=== PATIENT | male | born 1955 | race Caucasian/White ===

== ENCOUNTER 2023-04-18 12:22 | Outpatient (CLI) | payer MEDICARE, MEDICAID, SELFPAY ==
--- NOTE | 2023-04-18 12:30 | CRLHL7_ITS ---
For Patients: As a result of the Century Cures Act, medical imaging exams and procedure reports are released immediately into your electronic medical record. You may view this report before your referring provider. If you have questions, please contact your health care provider. INDICATION: Lung carcinoma. Pain. TECHNIQUE: Left shoulder 3 view. IMPRESSION: Focal area of somewhat linear intra cortical lucency along the lateral cortex of the humerus. This is identified on series 1. Surgical clips are noted at the level of the proximal humerus in the left axilla. Arthrosis and spurring of the AC joint. No additional aggressive lytic or sclerotic bone lesion. Suggest radionuclide bone scan for characterization of the left humerus. Dictated by Chance Easley MD @ 04/19/2023 10:23:31 AM (Electronically Signed)
== END 2023-04-18 12:23 | disposition home or self-care (01) ==
PROVIDERS: Visit Provider Radiology Radiation Oncology
DX: C34.80 Malignant neoplasm of overlapping sites of unspecified bronchus and lung (principal); M19.012 Primary osteoarthritis, left shoulder; C79.51 Secondary malignant neoplasm of bone
CPT/HCPCS: 73030

== ENCOUNTER 2023-04-24 08:56 | Outpatient (CLI) | payer MEDICARE, MEDICAID, SELFPAY ==
--- NOTE | 2023-04-24 09:00 | CRLHL7_ITS ---
For Patients: As a result of the Century Cures Act, medical imaging exams and procedure reports are released immediately into your electronic medical record. You may view this report before your referring provider. If you have questions, please contact your health care provider. NM whole-body bone Scan: Technique: Nuclear medicine whole-body bone scan per protocol after the intravenous administration of 25.9 millicuries technetium 99 M MDP. In addition to anterior and posterior whole body images, lateral views of the chest were obtained. Clinical information: Lung cancer Comparison: CT chest March 20, 2023 Findings: Focal uptake within the right 11th posterolateral rib corresponds to a fracture on recent CT. There is abnormal focal uptake within the left proximal humerus. Additionally there is increased uptake with central photopenia within the left acetabulum. Degenerative-type activity is present within bilateral acromioclavicular joints, thoracic spine, knees and feet. There is normal renal and urinary bladder activity. There is no abnormal soft tissue uptake. Impression: Abnormal focal uptake within the left proximal humerus and at the left acetabulum may be seen with osseous metastatic disease. Recommend FDG PET-CT to adequately characterize/most accurately stage. Dictated by Nasim Meade MD @ 04/24/2023 6:50:02 PM (Electronically Signed)
== END 2023-04-24 08:57 | disposition home or self-care (01) ==
LOC: NM 09:00
PROVIDERS: Visit Provider Radiology Radiation Oncology
DX: C34.80 Malignant neoplasm of overlapping sites of unspecified bronchus and lung (principal); C79.51 Secondary malignant neoplasm of bone
CPT/HCPCS: 78306; A9503

== ENCOUNTER 2023-05-14 10:14 | Emergency (ER) | payer MEDICARE, MEDICAID, SELFPAY ==
[2023-05-14] VITALS (7 sets, daily range): BP systolic 116–133; BP diastolic 81–101; PULSE 99–111; RESP 20; TEMP 36.9; O2SAT 88–93; BMI 30.2
[2023-05-14 11:24] LABS: PCR FLU A Negative PCR FLU A (Negative); PCR FLU B Negative PCR FLU B (Negative); PCR RSV Negative PCR RSV (Negative); SARS PCR* Negative SARS-CoV-2 (Negative)
--- NOTE | 2023-05-14 11:36 | CRLHL7_ITS ---
For Patients: As a result of the Century Cures Act, medical imaging exams and procedure reports are released immediately into your electronic medical record. You may view this report before your referring provider. If you have questions, please contact your health care provider. Indication: Shortness of breath, left-sided rib pain Technique: Volumetric multidetector CT images of the chest were obtained after the administration of IV contrast. 95 cc Isovue 370 low osmolar intravenous contrast Comparison: None available. Findings: The thoracic inlet and thyroid gland are unremarkable. The thoracic aorta is nonaneurysmal. There is no central filling defect to suggest pulmonary embolism. There are enlarged mediastinal and hilar lymph nodes. There is marked thickening of the proximal right lower lobe, middle lobe and upper lobe bronchi with questionable encasement of right hilar vascular structures. Additional moderate thickening of the left lower lobe and inferior left upper lobe bronchi are appreciated with complete mucoid impaction of inferior left upper lobe seen on series 4, image 13. There are diffusely increased interstitial markings with right apical linear parenchymal scar and volume loss. There is no dense consolidation, effusion or pneumothorax. No evidence of displaced rib injury. There are questionable surgical clips seen along the posterior left chest wall superficial to the subscapularis muscle. The partially visualized upper abdominal viscera are within normal limits. The thoracic vertebral body heights are grossly maintained with moderate to severe degenerative disc disease. Impression: No evidence of pulmonary embolus. Marked thickening of the right greater than left hilar bronchi with mucoid impaction of inferior left upper lobe bronchi and questionable right hilar bronchovascular encasement with reactive mediastinal and hilar lymph nodes. Overall, findings could represent severe bronchitis changes; however, an underlying bronchogenic neoplasm is not entirely excluded. Consider further evaluation with bronchoscopy. Otherwise, minimal basilar atelectasis and parenchymal scar. Questionable surgical clips along the posterior left chest wall just superficial to the subscapularis muscle. Correlate with surgical history. Otherwise, no evidence of displaced rib injury. Please note that all CT scans at this facility use dose modulation, iterative reconstruction, and/or weight-based dosing when appropriate to reduce radiation dose to as low as reasonably achievable. Dictated by Yraon Wolff MD @ 05/14/2023 1:29:40 PM (Electronically Signed)
[2023-05-14] MEDS: HYDROmorphone 0.5 mg/0.5 ml inj 1 MG IVP (11:59)
[2023-05-14] MEDS: 0.9 % SODIUM CHLORIDE 1000 ml 1,000 ML IV (12:00)
[2023-05-14 12:12] LABS: Basophils Absolute Auto 0.02 K/uL (0.00-0.30); Basophils Percent Auto 0.2 % (0.0-3.0); Eosinophils Absolute Auto 0.04 K/uL (0.00-0.50); Eosinophils Percent Auto 0.4 % (0.0-7.0); Hematocrit 37.6 % (37.0-53.0); Hemoglobin* 12.4 gm/dL (13.5-17.5); Immature Granulocytes Abs Auto 0.04 K/uL (0.00-0.30); Immature Granulocytes Pct Auto 0.4 %; Lymphocytes Percent Auto 4.7 % (20-44); Mean Corpuscular HGB Conc 33 gm/dL (32-36); Mean Corpuscular Hemoglobin 30 pg (26-34); Mean Corpuscular Volume 90 fL (80-100); Monocytes Percent Auto 5.2 % (0.0-11.0); Neutrophils Percent Auto 89.1 % (42.0-72.0); Platelet Count* 259 K/uL (140-440)
[2023-05-14 12:15] LABS: Slide Review Reflex No
[2023-05-14 12:17] LABS: Chloride* 98 mmol/L (96-114); Sodium* 133 mmol/L (135-149)
[2023-05-14 12:18] LABS: Potassium* 3.8 mmol/L (3.6-5.1)
[2023-05-14 12:20] LABS: Creatinine* 0.6 mg/dL (0.5-1.5); Est. Creatinine Clearance* 67.94; Estimated Glomerular Filt Rate 106 ml/min
[2023-05-14 12:21] LABS: Anion Gap 8 mEq/L (7-15); Blood Urea Nitrogen* 10 mg/dL (7-30); Calcium* 9.5 mg/dL (8.4-10.6); Carbon Dioxide* 27 mmol/L (20-32); Glucose* 102 mg/dL (60-115)
[2023-05-14 12:34] LABS: Troponin I* < 0.01 ng/mL (0.01-0.04)
--- NOTE | 2023-05-14 13:53 | ED_ITS ---
HPI - General Adult General Date Seen: 05/14/23 Chief complaint: Shortness of Breath/Dyspnea Stated complaint: L arm/shoulder pain, short of breath Time Seen by Provider: 05/14/23 11:18 Source: patient and family Mode of arrival: ambulatory Limitations: no limitations History of Present Illness HPI narrative: Patient is a 67-year-old gentleman who has known metastatic lung cancer, to his left shoulder and left hip. He also is being treated for the cancer, has undergone chemotherapy a week ago. For this he also has gone radiation therapy to his left shoulder and left hip. He has had increasing over the past 3-4 days of left-sided pain in his ribs. Whenever he takes a breath in her twists or turns he notices the pain, he has no pain at rest without doing these things, he gets relief by putting pressure over this area he has not noted any rashes associated with this. He describes no fevers or chills, coughing, nausea vomiting or other issues. He has been able to deal pretty well with the chemotherapy so far is hopeful that this will actually buy him some time and possibly a cure. He is here today with his sister and his son. He gets his treatment down at [address], and also with oncology at [facility]. He has also had some hemoptysis which she says is not uncommon for him. He had this initially for diagnosis, now it is a little bit more blood-tinged No history DVTs, he has had no leg pain at all, swelling. He is taking his pain medications as directed with 10 mg of long-acting OxyContin along with interspersed Percocet for the discomfort Treatments prior to arrival: none Related Data Home Medications Medication Instructions Recorded Confirmed albuterol sulfate 90 mcg/actuation 2 puff inhalation 01/08/23 01/08/23 aerosol inhaler amlodipine 10 mg tablet 10 mg PO DAILY 01/08/23 05/14/23 atorvastatin 40 mg tablet 40 mg PO DAILY 01/08/23 05/14/23 hydrochlorothiazide 25 mg tablet 25 mg PO DAILY 01/08/23 05/14/23 losartan 50 mg tablet 50 mg PO DAILY 01/08/23 05/14/23 potassium chloride 20 mEq 20 meq PO DAILY 01/08/23 05/14/23 tablet,extended release(part/cryst) (Klor-Con M) amoxicillin 500 mg capsule 1,000 mg PO BID 05/14/23 05/14/23 ondansetron HCl 4 mg tablet 4 mg PO TID-QID PRN 05/14/23 05/14/23 oxycodone 10 mg tablet,extended mg PO 05/14/23 release,12 hr oxycodone 5 mg tablet 5 mg PO Q4-6H PRN 05/14/23 05/14/23 Previous Rx's Medication Instructions Recorded benzonatate 100 mg capsule 100 mg PO BID PRN cough #10 caps 01/08/23 amoxicillin 875 mg-potassium 1 tab PO BID #20 tabs 05/14/23 clavulanate 125 mg tablet oxycodone 20 mg tablet,crush 20 mg PO BID #14 tabs 05/14/23 resistant,extended release 12 hr (OxyContin) Allergies Allergy/AdvReac Type Severity Reaction Status Date / Time No Known Drug Allergies Allergy Verified 05/14/23 10:31 Review of Systems Status of ROS: Reports: 10 or more systems reviewed and unremarkable except as noted in History and below Exam Narrative: Exam Narrative: Patient is seen in room 6 he is in no apparent distress, but he is holding his left side, whenever he breathes or talks with me. He is vital signs are stable. Pupils are equal round reactive to light there is no scleral icterus redness TMs are normal, his chest has some occasional wheezes in his lungs bilaterally. But not so bad no crackles are noted he has no rash to suspect zoster. Heart sounds no clicks murmurs or gallops his abdomen is soft there is no guarding, his legs show no with edema swelling any moves them normally. Const: Vital Signs, click to edit/add: Vital Signs - 24 hr 05/14/23 10:35 05/14/23 12:19 05/14/23 12:21 Temperature 98.5 F Pulse Rate 99 109 H Pulse Rate [Pulse Oximeter] 111 H Respiratory Rate 20 Blood Pressure 118/101 H Blood Pressure [Ri ght Upper Arm] 116/81 Pulse Oximetry 93 91 91 Oxygen Delivery Me thod Room Air 05/14/23 12:22 05/14/23 13:02 05/14/23 13:15 Temperature Pulse Rate 106 H 107 H 103 H Pulse Rate [Pulse Oximeter] Respiratory Rate Blood Pressure Blood Pressure [Ri ght Upper Arm] Pulse Oximetry 88 91 92 Oxygen Delivery Ak thod Documenting provider has reviewed patient's vital signs: yes Course Course ED Course: I discussed with him the results of the CT scan, showing mucus and plugging of his bronchi, we will switch him to a mop augment him, have him stop the amoxicillin which she was taking for dental issues. And have him also double up on his OxyContin, and I have given him a new prescription for 14 tablets of the 20 mg he will follow-up with primary care or oncology for further prescription. No evidence of pulmonary embolus was given, we will give him a copy of all his lab test. Vital Signs Vital signs: Initial Vital Signs Temperature 98.5 F 05/14/23 10:35 Temperature Source Temporal Artery Scan 05/14/23 10:35 Pulse Rate 111 H 05/14/23 10:35 Pulse Rhythm Regular 05/14/23 10:35 Pulse Strength 3+ Normal 05/14/23 10:35 Respiratory Rate 20 05/14/23 10:35 Blood Pressure 116/81 05/14/23 10:35 Blood Pressure Mean 92 05/14/23 10:35 Blood Pressure Position Sitting 05/14/23 10:35 Pulse Oximetry 93 05/14/23 10:35 Oxygen Delivery Method Room Air 05/14/23 10:35 Vital Signs Temperature 98.5 F 05/14/23 10:35 Pulse Rate 111 H 05/14/23 10:35 Respiratory Rate 20 05/14/23 10:35 Blood Pressure 116/81 05/14/23 10:35 Pulse Oximetry 93 05/14/23 10:35 Oxygen Delivery Method Room Air 05/14/23 10:35 Temperature 98.5 F 05/14/23 10:35 Pulse Rate 103 H 05/14/23 13:15 Respiratory Rate 20 05/14/23 10:35 Blood Pressure 118/101 H 05/14/23 12:21 Pulse Oximetry 92 05/14/23 13:15 Oxygen Delivery Method Room Air 05/14/23 10:35 Medications Administered Medications: Discontinued Medications Generic Name Dose Route Start Last Admin Trade Name Freq PRN Reason Stop Dose Admin Hydromorphone HCl 1 mg 05/14/23 11:35 05/14/23 11:59 Hydromorphone 0.5 Mg/0.5 Ml Inj IVP 05/14/23 11:36 1 mg ONCE ONE Administration Sodium Chloride 1,000 mls @ 1,000 mls/hr 05/14/23 11:45 05/14/23 12:00 0.9 % Sodium Chloride 1000 Ml IV 05/14/23 12:44 1,000 mls/hr .Q1H LALO Administration Medical Decision Making MDM Narrative Medical decision making narrative: During the evaluation of this patient I considered multiple differential diagnosis is. The life-threatening differential diagnosis include coronary disease/MD, pulmonary embolism, pneumothorax, pneumonia, and aortic dissection. Other differential diagnosis included but were not limited to pericarditis, myocarditis, chest wall pain, GERD, esophageal rupture, rib fracture contusion, pleurisy, as well as other etiologies. Medical Records Medical records reviewed: Yes I reviewed the patient's medical records Lab Data Lab results reviewed: Yes I reviewed the patient's lab results Labs: Lab Results 05/14/23 05/14/23 Range/Units 11:55 Unknown WBC 10.10 (4.50-11.00) K/uL RBC 4.20 L (4.30-5.90) m/uL Hgb 12.4 L (13.5-17.5) gm/dL Hct 37.6 (37.0-53.0) % MCV 90 (80-100) fL MCH 30 (26-34) pg MCHC 33 (32-36) gm/dL RDW Coeff of Lex[place] 14.0 (11.5-15.5) % Plt Count 259 (140-440) K/uL Neut % (Auto) 89.1 H (42.0-72.0) % Lymph % (Auto) 4.7 L (20-44) % [place] % (Auto) 5.2 (0.0-11.0) % Eos % (Auto) 0.4 (0.0-7.0) % Baso % (Auto) 0.2 (0.0-3.0) % Neut # (Auto) 9.00 H (1.7-7.0) K/uL Lymph # (Auto) 0.50 L (0.90-2.90) K/uL [place] # (Auto) 0.50 (0.00-0.90) K/UL Eos # (Auto) 0.04 (0.00-0.50) K/uL Baso # (Auto) 0.02 (0.00-0.30) K/uL Abs Immat Gran (auto) 0.04 (0.00-0.30) K/uL Imm/Tot Granulo (auto) 0.4 % Sodium 133 L (135-149) mmol/L Potassium 3.8 (3.6-5.1) mmol/L Chloride 98 (96-114) mmol/L Carbon Dioxide 27 (20-32) mmol/L Anion Gap 8 (7-15) mEq/L BUN 10 (7-30) mg/dL Creatinine 0.6 (0.5-1.5) mg/dL Estimated Creat Clear 67.94 Estimated GFR 106 ml/min Glucose 102 (60-115) mg/dL Calcium 9.5 (8.4-10.6) mg/dL Troponin I < 0.01 L (0.01-0.04) ng/mL SARS-CoV-2 (PCR) Negative SARS-CoV-2 (Negative) Influenza Type A (PCR) Negative PCR FLU A (Negative) Influenza Type B (PCR) Negative PCR FLU B (Negative) RSV (PCR) Negative PCR RSV (Negative) Imaging Data CT scan - chest: Attestation: I have reviewed the pertinent imaging results. Radiologist's impression: Patient: JAKE SHAH Facility:?[facility] Patient ID:?[id number] Site Patient ID:?[id number]. Site :?[id number] Study:?CT Chest Angio PE W/ISOVUE 370 95CC-05/14/2023 12:57:14 PM Ordering Physician:Madi Grissom Final Report: Indication: Shortness of breath, left-sided rib pain Technique: Volumetric multidetector CT images of the chest were obtained after the administration of IV contrast. 95 cc Isovue 370 low osmolar intravenous contrast Comparison: None available. Findings: The thoracic inlet and thyroid gland are unremarkable. The thoracic aorta is nonaneurysmal. There is no central filling defect to suggest pulmonary embolism. There are enlarged mediastinal and hilar lymph nodes. There is marked thickening of the proximal right lower lobe, middle lobe and upper lobe bronchi with questionable encasement of right hilar vascular structures. Additional moderate thickening of the left lower lobe and inferior left upper lobe bronchi are appreciated with complete mucoid impaction of inferior left upper lobe seen on series 4, image 13. There are diffusely increased interstitial markings with right apical linear parenchymal scar and volume loss. There is no dense consolidation, effusion or pneumothorax. No evidence of displaced rib injury. There are questionable surgical clips seen along the posterior left chest wall superficial to the subscapularis muscle. The partially visualized upper abdominal viscera are within normal limits. The thoracic vertebral body heights are grossly maintained with moderate to severe degenerative disc disease. Impression: No evidence of pulmonary embolus. Marked thickening of the right greater than left hilar bronchi with mucoid impaction of inferior left upper lobe bronchi and questionable right hilar bronchovascular encasement with reactive mediastinal and hilar lymph nodes. Overall, findings could represent severe bronchitis changes; however, an underlying bronchogenic neoplasm is not entirely excluded. Consider further evaluation with bronchoscopy. Otherwise, minimal basilar atelectasis and parenchymal scar. Questionable surgical clips along the posterior left chest wall just superficial to the subscapularis muscle. Correlate with surgical history. Otherwise, no evidence of displaced rib injury. Please note that all CT scans at this facility use dose modulation, iterative reconstruction, and/or weight-based dosing when appropriate to reduce radiation dose to as low as reasonably achievable. Dictated by Yaron Wolff MD @ 05/14/2023 1:29:40 PM (Electronic Signature) ECG Data Attestation: I personally reviewed and interpreted this ECG as follows: Prior ECG tracings: not available for review Interpretation: EKG shows normal sinus tachycardia 107, artifact from muscle movement is noted, no acute ST wave changes. Discharge Plan Discharge Clinical Impression: Cough with hemoptysis, Rib pain on left side, Lung cancer metastatic to bone Patient Disposition: Home w/ Parent or Adult Condition: Stable Instructions: Chest Pain (ED), Rib Fracture (ED), Coughing Up Blood (Hemoptysis) (ED), Bone Metastasis (ED) Additional Instructions: Home rest we will try some increased dose of OxyContin to see if we can get her pain under control I do suspect you crack through 1 of the ribs. Given your pain. We will have you stop the amoxicillin and start the Augmentin, follow-up with Oncology your primary care this week, continue to take your other medications for breakthrough pain. Please give him copies of all his laboratory work, and also copies of his CT both the actual CD and the copies of the report. Prescriptions: New oxycodone [OxyContin] 20 mg tablet,oral only,ext.rel.12 hr 20 mg PO BID Qty: 14 0RF Rx Instructions: Patient to take medication as directed, stop taking the other long-acting OxyContin. amoxicillin-pot clavulanate 875-125 mg tablet 1 tab PO BID Qty: 20 0RF Rx Instructions: Take the medication as directed, stop taking her amoxicillin while you taking the Augmentin. No Action hydrochlorothiazide 25 mg tablet 25 mg PO DAILY potassium chloride [Klor-Con M20] 20 mEq tablet,ER particles/crystals 20 meq PO DAILY amlodipine 10 mg tablet 10 mg PO DAILY atorvastatin 40 mg tablet 40 mg PO DAILY losartan 50 mg tablet 50 mg PO DAILY albuterol sulfate 90 mcg/actuation HFA aerosol inhaler 2 puff inhalation benzonatate 100 mg capsule 100 mg PO BID PRN (Reason: cough) Qty: 10 0RF amoxicillin 500 mg capsule 1,000 mg PO BID oxycodone 5 mg tablet 5 mg PO Q4-6H PRN oxycodone 10 mg tablet extended release 12 hr PO ondansetron HCl 4 mg tablet 4 mg PO TID-QID PRN Follow Up/Referrals: Provider,Not a Local [Primary Care Provider] - Stand Alone Forms: Snoobe Info Instructions
== END 2023-05-14 14:13 | disposition home or self-care (01) ==
PROVIDERS: Emergency Provider Family Medicine
DX: R04.2 Hemoptysis (principal); R07.81 Pleurodynia; C34.90 Malignant neoplasm of unspecified part of unspecified bronchus or lung; C79.51 Secondary malignant neoplasm of bone
CPT/HCPCS: 36415; 71275; 80048; 84484; 85025; 87631; 96374; 99284; J1170; J7030; Q9967

== ENCOUNTER 2023-07-02 13:55 | Emergency (ER) | payer MEDICARE, MEDICAID, SELFPAY ==
[2023-07-02 13:57] VITALS: BP 111/74; PULSE 97; RESP 18; TEMP 36.3; O2SAT 98; BMI 29.6
--- NOTE | 2023-07-02 15:31 | ED.GENADULT ---
HPI - General Adult General Date Seen: 07/02/23 Chief complaint: Dental/Oral/Mouth Injury/Pain Stated complaint: Fever, chemo pt Time Seen by Provider: 07/02/23 15:31 History of Present Illness HPI narrative: 67 yo M with history of metastatic lung cancer with Mets to his bones in his shoulder and his hip. He is currently on chemotherapy for his cancer and has also previously had radiation therapy to his shoulder and hip. He receives his care through [facility] in [place]. Med list from [facility] through [employer] link indicates that he is on dexamethasone, He also has history of hypertension, hyperlipidemia, coronary disease with NSTEMI, abdominal aortic aneurysm. He has metastatic lung cancer and was started on chemotherapy a few weeks ago. Most recent round of chemo was 19 or 20 days ago and he is due to have his next round of chemo in a day or 2. For the past couple days he has developed fever and chills and also had some discomfort and swelling of his right maxillary gums. He has had recent dental infection is concerned that he probably has another infected tooth. No other symptoms with the fever. No cough. No shortness of breath. No nausea vomiting. No diarrhea. No abdominal pain. No other rashes. No headache. He is not weak or lightheaded. He says he thinks he just has a dental infection but he called his oncology clinic and they told him to come to the ER to be checked out. It looks like he has have phone triage nurse call to his oncologist today. That indicates that he has had a fever for 2 days with body aches, occasional runny noses but no cough. The patient is concerned about an infected tooth. Per his oncology note from 06/10 he is on palliative chemotherapy with carboplatin, paclitaxel, pembrolizumab. Related Data Home Medications Medication Instructions Recorded Confirmed albuterol sulfate 90 mcg/actuation 2 puff inhalation 01/08/23 01/08/23 aerosol inhaler amlodipine 10 mg tablet 10 mg PO DAILY 01/08/23 05/14/23 atorvastatin 40 mg tablet 40 mg PO DAILY 01/08/23 05/14/23 hydrochlorothiazide 25 mg tablet 25 mg PO DAILY 01/08/23 05/14/23 losartan 50 mg tablet 50 mg PO DAILY 01/08/23 05/14/23 potassium chloride 20 mEq 20 meq PO DAILY 01/08/23 05/14/23 tablet,extended release(part/cryst) (Klor-Con M) amoxicillin 500 mg capsule 1,000 mg PO BID 05/14/23 05/14/23 ondansetron HCl 4 mg tablet 4 mg PO TID-QID PRN 05/14/23 05/14/23 oxycodone 10 mg tablet,extended mg PO 05/14/23 release,12 hr oxycodone 5 mg tablet 5 mg PO Q4-6H PRN 05/14/23 05/14/23 Previous Rx's Medication Instructions Recorded benzonatate 100 mg capsule 100 mg PO BID PRN cough #10 caps 01/08/23 amoxicillin 875 mg-potassium 1 tab PO BID #20 tabs 05/14/23 clavulanate 125 mg tablet oxycodone 20 mg tablet,crush 20 mg PO BID #14 tabs 05/14/23 resistant,extended release 12 hr (OxyContin) Allergies Allergy/AdvReac Type Severity Reaction Status Date / Time No Known Drug Allergies Allergy Verified 05/14/23 10:31 [facility] Social History Smoking Status: Current every day smoker How often do you have a drink containing alcohol: never How often do you have six or more drinks on one occasion: Never AUDIT-C Alcohol total score: 0 Non-prescribed substance use: denies use Exam Narrative: Exam Narrative: Constitutional: Appears well-developed and well-nourished. Alert. Conversant. Non toxic. HENT: Head: Atraumatic. Nose: Nose normal. Mouth/Throat: Oral mucosa is clear and moist. no trismus. Lowered teeth in lower jaw are normal. No trismus. Pharynx normal. Tonsils symmetric. No tonsillar enlargement, erythema, or exudate. Patient has had extraction of multiple molars on the upper teeth and a few lower teeth. He has an apparent periapical abscess adjacent to the gums of his right maxillary premolars. Unclear if it is coming from the anterior or posterior premolar. There is roughly a 5 8 mm area of fluctuance and swelling consistent with an abscess. No other facial swelling or signs of buccal space abscess. No associated facial cellulitis. Eyes: Conjunctivae normal. EOM normal. Pupils equal, round, and reactive to light. No scleral icterus. Neck: Normal range of motion. Neck supple. No tracheal deviation present. Cardiovascular: Normal rate, regular rhythm. No gallop. No friction rub. No murmur heard. Symmetric radial artery pulses Pulmonary/Chest: Effort normal. No stridor. No respiratory distress. No wheezes. No rales. No rhonchi . No tenderness. Abdominal: Soft.No distension. No mass. No tenderness. No rebound. No guarding. Musculoskeletal: RUE: Normal range of motion. No tenderness. No deformity LUE: Normal range of motion. No tenderness. No deformity RLE: Normal range of motion. No edema. No tenderness. No deformity LLE: Normal range of motion. No edema. No tenderness. No deformity Neurological: Alert and oriented to person, place, and time. Normal strength. CN II-VII intact. No sensory deficit. GCS eye subscore is 4. GCS verbal subscore is 5. GCS motor subscore is 6. Normal coordination Skin: Skin is warm and dry. No rash noted. No pallor. Normal capillary refill. Psychiatric: Normal mood. Normal affect. Const: Vital Signs, click to edit/add: Vital Signs - 24 hr 07/02/23 13:57 07/02/23 15:56 Temperature 97.4 F L 98 F Pulse Rate [Right Pulse Oximeter] 97 Respiratory Rate 18 Blood Pressure [Ri ght Upper Arm] 111/74 Pulse Oximetry 98 Oxygen Delivery Me thod Room Air Course Course ED Course: Recheck- Procedure: Aspiration of dental abscess Indication dental abscess right maxilla Procedure: Verbal consent was obtained from the patient and his family local anesthesia was achieved by injection of a total of 3 mL 1% lidocaine with epi into the fornix of the upper lip. Good anesthesia was achieved. Once the gums were anesthetized we used an 18 gauge needle and entered into the abscess pocket. We achieved aspiration of about 1 mL of purulent fluid. With this there was still a little bit of purulent fluid draining out of the aspiration site. Using gentle pressure we drained the residual fluid. The abscess appeared to be deflated and drained. Patient tolerated the procedure well. No bleeding. No discomfort. Vital Signs Vital signs: Initial Vital Signs Temperature 97.4 F L 07/02/23 13:57 Temperature Source Temporal Artery Scan 07/02/23 13:57 Pulse Rate 97 07/02/23 13:57 Respiratory Rate 18 07/02/23 13:57 Blood Pressure 111/74 07/02/23 13:57 Blood Pressure Mean 86 07/02/23 13:57 Blood Pressure Position Sitting 07/02/23 13:57 Pulse Oximetry 98 07/02/23 13:57 Oxygen Delivery Method Room Air 07/02/23 13:57 Vital Signs Temperature 97.4 F L 07/02/23 13:57 Pulse Rate 97 07/02/23 13:57 Respiratory Rate 18 07/02/23 13:57 Blood Pressure 111/74 07/02/23 13:57 Pulse Oximetry 98 07/02/23 13:57 Oxygen Delivery Method Room Air 07/02/23 13:57 Temperature 98 F 07/02/23 15:56 Pulse Rate 97 07/02/23 13:57 Respiratory Rate 18 07/02/23 13:57 Blood Pressure 111/74 07/02/23 13:57 Pulse Oximetry 98 07/02/23 13:57 Oxygen Delivery Method Room Air 07/02/23 13:57 Medical Decision Making MDM Narrative Medical decision making narrative: Child presents for evaluation of fever. He is on chemo for metastatic lung cancer. Last round of chemo was actually 19 days ago. Differential is broad. Initial concern was to evaluate for the possibility of neutropenia. Fortunately white cell count and neutrophil count are adequate. CBCs actually reassuring with a normal total white count. I do see that there is a neutrophil predominance however consistent with fighting off infection. Differential for the cause of his fever was broad. No evidence for OM on exam. No pharyngitis. No cough or other URI symptoms to raise concern for COVID, influenza, RSV, or pneumonia. Differential for fever included cellulitis, septic arthritis, osteomyelitis but these are not seen on exam. Lungs are clear and no significant cough, so I doubt pneumonia. Abdominal exam is benign, appendicitis/colitis/ intra-abdominal source for fever is unlikely. The patient is smiling, alert, sitting up, and non-toxic, so I do not think sepsis or meningitis is present. He does have evidence for a right maxillary gum infection and periapical abscess. This appears to be stemming from 1 of the right maxillary premolars. He had already started himself on leftover amoxicillin with 1 dose yesterday and 1 dose this morning. He is not febrile here in the ER. We did aspirate the abscess with significant pus drainage in will continue the patient on antibiotics. With reassuring labs I think he is appropriate for management with outpatient antibiotics. Will put him on amoxicillin 1000 mg b.i.d. for 10 days. Instymeds prescription provided. He will move up his upcoming appointment with his dentist to be within the next 1-2 days (appointment currently scheduled for next Sunday). Precautions for return to the ER with worsening symptoms were reviewed. The patient and his family are agreeable. Lab Data Labs: Lab Results 07/02/23 Range/Units 15:55 WBC 4.79 (4.50-11.00) K/uL RBC 3.66 L (4.30-5.90) m/uL Hgb 11.3 L (13.5-17.5) gm/dL Hct 34.4 L (37.0-53.0) % MCV 94 (80-100) fL MCH 31 (26-34) pg MCHC 33 (32-36) gm/dL RDW Coeff of [place] 16.6 H (11.5-15.5) % Plt Count 209 (140-440) K/uL Neut % (Auto) 82.9 H (42.0-72.0) % Lymph % (Auto) 5.4 L (20-44) % [place] % (Auto) 9.6 (0.0-11.0) % Eos % (Auto) 0.4 (0.0-7.0) % Baso % (Auto) 0.4 (0.0-3.0) % Neut # (Auto) 4.00 (1.7-7.0) K/uL Lymph # (Auto) 0.30 L (0.90-2.90) K/uL [place] # (Auto) 0.50 (0.00-0.90) K/UL Eos # (Auto) 0.02 (0.00-0.50) K/uL Baso # (Auto) 0.02 (0.00-0.30) K/uL Abs Immat Gran (auto) 0.06 (0.00-0.30) K/uL Imm/Tot Granulo (auto) 1.3 % Sodium 135 (135-149) mmol/L Potassium 3.5 L (3.6-5.1) mmol/L Chloride 98 (96-114) mmol/L Carbon Dioxide 29 (20-32) mmol/L Anion Gap 8 (7-15) mEq/L BUN 13 (7-30) mg/dL Creatinine 0.7 (0.5-1.5) mg/dL Estimated Creat Clear 67.94 Estimated GFR 102 ml/min Glucose 95 (60-115) mg/dL Calcium 9.7 (8.4-10.6) mg/dL Discharge Plan Discharge Clinical Impression: Abscessed tooth Patient Disposition: Home, Self-Care Condition: Stable Instructions: Dental Abscess (ED) Additional Instructions: As we discussed, continue on the amoxicillin 1000 mg by mouth twice daily for 10 days. Monitor your infection carefully and if you have increasing swelling of your gums or your face, high fever, weakness, or any other worsening of your condition, please return to the ER or see your doctor immediately. Please call your dentist and try to move up her appointment to be rechecked within the next 1-3 days. Please call your oncologist let them know that you are on antibiotics for your abscessed tooth and that you should delay your next round of chemotherapy until your infection is improved. Prescriptions: No Action hydrochlorothiazide 25 mg tablet 25 mg PO DAILY potassium chloride [Klor-Con M20] 20 mEq tablet,ER particles/crystals 20 meq PO DAILY amlodipine 10 mg tablet 10 mg PO DAILY atorvastatin 40 mg tablet 40 mg PO DAILY losartan 50 mg tablet 50 mg PO DAILY albuterol sulfate 90 mcg/actuation HFA aerosol inhaler 2 puff inhalation benzonatate 100 mg capsule 100 mg PO BID PRN (Reason: cough) Qty: 10 0RF amoxicillin 500 mg capsule 1,000 mg PO BID oxycodone 5 mg tablet 5 mg PO Q4-6H PRN oxycodone 10 mg tablet extended release 12 hr PO ondansetron HCl 4 mg tablet 4 mg PO TID-QID PRN oxycodone [OxyContin] 20 mg tablet,oral only,ext.rel.12 hr 20 mg PO BID Qty: 14 0RF Rx Instructions: Patient to take medication as directed, stop taking the other long-acting OxyContin. amoxicillin-pot clavulanate 875-125 mg tablet 1 tab PO BID Qty: 20 0RF Rx Instructions: Take the medication as directed, stop taking her amoxicillin while you taking the Augmentin. Follow Up/Referrals: Provider,Not a Local [Primary Care Provider] - Stand Alone Forms: MyHealth Info Instructions
[2023-07-02 15:56] VITALS: TEMP 36.6
[2023-07-02 16:12] LABS: Basophils Absolute Auto 0.02 K/uL (0.00-0.30); Basophils Percent Auto 0.4 % (0.0-3.0); Eosinophils Absolute Auto 0.02 K/uL (0.00-0.50); Eosinophils Percent Auto 0.4 % (0.0-7.0); Hematocrit 34.4 % (37.0-53.0); Hemoglobin* 11.3 gm/dL (13.5-17.5); Immature Granulocytes Abs Auto 0.06 K/uL (0.00-0.30); Immature Granulocytes Pct Auto 1.3 %; Lymphocytes Percent Auto 5.4 % (20-44); Mean Corpuscular HGB Conc 33 gm/dL (32-36); Mean Corpuscular Hemoglobin 31 pg (26-34); Mean Corpuscular Volume 94 fL (80-100); Monocytes Percent Auto 9.6 % (0.0-11.0); Neutrophils Percent Auto 82.9 % (42.0-72.0); Platelet Count* 209 K/uL (140-440); RDW Coefficient of Variation % 16.6 % (11.5-15.5); Red Blood Count 3.66 m/uL (4.30-5.90); White Blood Count* 4.79 K/uL (4.50-11.00)
[2023-07-02 16:14] LABS: Slide Review Reflex No
[2023-07-02 16:32] LABS: Chloride* 98 mmol/L (96-114)
[2023-07-02 16:33] LABS: Potassium* 3.5 mmol/L (3.6-5.1); Sodium* 135 mmol/L (135-149)
[2023-07-02 16:35] LABS: Creatinine* 0.7 mg/dL (0.5-1.5); Est. Creatinine Clearance* 67.94; Estimated Glomerular Filt Rate 102 ml/min
[2023-07-02 16:36] LABS: Anion Gap 8 mEq/L (7-15); Blood Urea Nitrogen* 13 mg/dL (7-30); Calcium* 9.7 mg/dL (8.4-10.6); Carbon Dioxide* 29 mmol/L (20-32); Glucose* 95 mg/dL (60-115)
== END 2023-07-02 16:35 | disposition home or self-care (01) ==
PROVIDERS: Emergency Provider Emergency Medicine
DX: K04.7 Periapical abscess without sinus (principal)
CPT/HCPCS: 36415; 80048; 85025; 99283

== ENCOUNTER 2023-09-02 06:44 | Outpatient (CLI) | payer MEDICARE, MEDICAID, SELFPAY | END 2023-09-02 06:45 | disposition home or self-care (01) | LOC: AMB 09-20 04:16 | PROVIDERS: Visit Provider Family Medicine | DX: S49.91XA Unspecified injury of right shoulder and upper arm, initial encounter (principal); S49.92XA Unspecified injury of left shoulder and upper arm, initial encounter; W18.30XA Fall on same level, unspecified, initial encounter; Y93.89 Activity, other specified; Y92.126 Garden or yard of nursing home as the place of occurrence of the external cause | CPT/HCPCS: A0998 ==